=== PATIENT | male | born 1950 | race Caucasian/White ===

== ENCOUNTER → 2016-10-30 | Outpatient (CLI) | payer MEDICARE | END | disposition home or self-care (01) | LOC: PCVCCLINIC 11:40 | PROVIDERS: ATTEND Internal Medicine Cardiovascular Disease | DX: I10 Essential (primary) hypertension (principal); I71.2 Thoracic aortic aneurysm, without rupture; E78.00 Pure hypercholesterolemia, unspecified; I45.10 Unspecified right bundle-branch block; I07.1 Rheumatic tricuspid insufficiency; J44.9 Chronic obstructive pulmonary disease, unspecified; G47.33 Obstructive sleep apnea (adult) (pediatric); I87.2 Venous insufficiency (chronic) (peripheral); R07.89 Other chest pain | CPT/HCPCS: 80061; 93005; 93971; G0463 ==

== ENCOUNTER → 2017-04-17 | Outpatient (CLI) | payer MEDICARE ==
--- NOTE | 2017-04-20 18:27 | PCVCIMAG ---
APPROVED REPORT Study performed: 04/17/2017 09:31:35 EXAM: Comprehensive 2D, Doppler, and color-flow Echocardiogram Patient Location: Echo lab Status: routine BSA: 2.43 HR: 74 bpmBP: 120/76 mmHg Rhythm: RBBB Other Information Study Quality: Fair Indications COPD Hypertension/HDD Thoracic aorta aneurysm 2D Dimensions LVEF(%): 75.34 (>50%) IVSd: 10.00 (7-11mm)LVOT Diam: 25.09 (18-24mm) LVDd: 46.29 mm PWd: 9.73 (7-11mm) LVDs: 25.89 (25-40mm) Left Atrium: 33.54 (27-40mm) LV Single Plane 4CH: 60.43 % LV Single Plane 2CH: 66.78 %Gil's LVEF: 63.60 % Biplane EF: 64.3 % Volumes Left Atrial Volume (Systole) Single Plane 4CH: 49.24 mLSingle Plane 2CH: 51.67 mL Biplane LA Volume: 51.00 mLLA ESV Index: 21.00 mL/m2 Aortic Valve AoV Peak Marc.: 1.48 m/s AO Peak Gr.: 8.74 mmHgLVOT Max P.73 mmHg LVOT Max V: 1.09 m/s SULEMA Vmax: 3.64 cm2 Mitral Valve E/A Ratio: 0.9 MV Decel. Time: 167.60 ms MV E Max Marc.: 0.77 m/s MV A Marc.: 0.84 m/s IVRT: 89.97 ms TDI E/Lateral E': 9.63E/Medial E': 11.00 Medial E' Marc.: 0.07 m/s Lateral E' Marc.: 0.08 m/s Pulmonary Valve PV Peak Marc.: 1.00 m/sPV Peak Gr.: 4.03 mmHg Pulmonary Vein P Vein S: 0.71 m/sP Vein A: 0.35 m/s P Vein D: 0.47 m/sP Vein A Dur.: 90.0 msec P Vein S/D Ratio: 1.51 Tricuspid Valve TR Peak Marc.: 2.39 m/s TR Peak Gr.: 22.94 mmHg TV Vmax: 0.55 m/sPA Pressure: 30.00 mmHg Left Ventricle The left ventricle is normal size. There is normal LV segmental wall motion. There is normal left ventricular wall thickness. Left ventricular systolic function is normal. The left ventricular ejection fraction is within the normal range. LVEF is 60-65%. The left ventricular diastolic function is normal. Right Ventricle The right ventricle is normal size. The right ventricular systolic function is normal. Atria The left atrium size is normal. The right atrium size is normal. Aortic Valve The aortic valve is normal in structure. No aortic regurgitation is present. There is no aortic valvular stenosis. Mitral Valve The mitral valve is normal in structure. There is trivial mitral valve regurgitation noted. No evidence of mitral valve stenosis. Tricuspid Valve The tricuspid valve is normal in structure. Mild tricuspid regurgitation with a PA pressure of 30mmHg. Pulmonic Valve The pulmonary valve is normal in structure. There is no pulmonic valvular regurgitation. Great Vessels The aortic root is normal in size. The ascending aorta is not seen IVC is normal in size and collapses with >50% inspiration Pericardium There is no pericardial effusion. There is no pleural effusion. <Conclusion> There is normal left ventricular wall thickness. LVEF is 60-65%. The left ventricular diastolic function is normal. The right ventricle is normal size. The aortic valve is normal in structure. There is trivial mitral valve regurgitation noted. There is no pericardial effusion. Mild tricuspid regurgitation with a PA pressure of 30mmHg.
--- NOTE | 2017-04-20 18:27 | PCVCIMAG ---
APPROVED REPORT Exam: Nuclear Stress Test Indication: Chest Pain, RBBB, Ascending AA Patient Location: Out-Patient Stress Nurse: Brook Ralph RN, Jenna Ferro RN [place] Tech:Ronal Szymanski NMTCB Ht: 6 ft 2 in Wt: 260 lbs BSA: 2.43 m2 HR: 71 bpm BP: 125/80 mmHg BMI: 33.3 Rhythm: RBBB Medical History Medical History: Age, Hyperlipidemia, HTN, COPD, Smoker Medications: Benicar HCT, Atorvastatin, ASA Allergies: Nkda Pretest Chest Pain Characteristics: No chest pain Exercise History: Sedentary NM EXAM: Myocardial Perfusion REST/STRESS Imaging Protocol: Rest Tc-99m/Stress Tc-99m 1 day Resting Data Rest SPECT myocardial perfusion imaging was performed in supine position 45 minutes following the intravenous injection of 15.3 mCi of Tc-99m Sestamibi. Time of rest injection: 0945 Date: 04/17/2017 Pharmacologic Stress Pharmacologic stress test was performed by injecting Regadenoson 0.4 mg IV push followed by the intravenous injection of 42.6 mCi of Tc-99m Sestamibi. Time of stress injection: 1115 Date: 04/17/2017 The images were gated to evaluate regional wall motion and calculate left ventricular ejection fraction. Prone imaging was performed. Study Quality Study: Good Study Data Post stress, the left ventricular ejection was 73%.. SSS: 0 SRS: 0 SDS: 0 TID = 1.26. Perfusion Medium sized area of mild reversible ischemia involving the inferior/apical left ventricle consistent with a right coronary artery distribution. Mild post stress ventricular dilatation is present. This is a nonspecific findings sometimes seen with balanced ischemia. Please coorelate clinically. Wall Motion Normal left ventricular size and function with no regional wall motion abnormalities. Nuclear Conclusion Medium sized area of mild reversible ischemia involving the inferior/apical left ventricle consistent with a right coronary artery distribution. Mild post stress ventricular dilatation is present. This is a nonspecific findings sometimes seen with balanced ischemia. Please coorelate clinically. Post stress, the left ventricular ejection was 73%.. No prior study available for comparison. Interpreted by: Marito Riggs MD Electronically Approved: 04/17/2017 18:09:59 Stress Test Details Stress Test: Pharmacologic stress testing performed using 0.4 mg of regadenoson per 5 mL given IV over 10 seconds. HR Resting HR: 71 bpmMax Heart Rate (APMHR): 152 bpm Max HR Achieved: 96 bpmTarget HR (85% APMHR): 129 bpm % of APMHR: 63 Recovery HR: 83 bpm BP Resting BP: 125/80 mmHg Max BP: 120/63 mmHg ECG Resting ECG: Sinus Rhythm, RBBB Stress ECG: Sinus Rhythm, RBBB, Sinus Rhythm, NSSTT changes Maximum ST Deviation: 0.5 mm Arrhythmia: None Recovery ECG: Sinus Rhythm, RBBB Clinical Reason for Termination: Completed protocol Stress Symptoms: None Exercise duration: min 55 sec Exercise capacity: 1.0 METs Symptoms resolved during recovery. Stress ECG Conclusion ECG: Non-ischemic <Conclusion> ECG: Non-ischemic
== END | disposition home or self-care (01) ==
LOC: PCVCIMAG 15:34
PROVIDERS: ATTEND Internal Medicine Cardiovascular Disease
DX: I45.10 Unspecified right bundle-branch block (principal); I08.1 Rheumatic disorders of both mitral and tricuspid valves; K52.9 Noninfective gastroenteritis and colitis, unspecified; E78.5 Hyperlipidemia, unspecified; J44.9 Chronic obstructive pulmonary disease, unspecified; I10 Essential (primary) hypertension; I71.4 Abdominal aortic aneurysm, without rupture; E78.00 Pure hypercholesterolemia, unspecified; Z87.891 Personal history of nicotine dependence; Z79.899 Other long term (current) drug therapy
CPT/HCPCS: 78452; 80061; 93017; 93306; A9500

== ENCOUNTER → 2017-11-20 | Outpatient (CLI) | payer MEDICARE | END | disposition home or self-care (01) | LOC: PCVCCLINIC 11:00 | DX: I25.10 Atherosclerotic heart disease of native coronary artery without angina pectoris (principal); I10 Essential (primary) hypertension; I07.1 Rheumatic tricuspid insufficiency; I45.10 Unspecified right bundle-branch block; I71.2 Thoracic aortic aneurysm, without rupture; E78.00 Pure hypercholesterolemia, unspecified; F17.210 Nicotine dependence, cigarettes, uncomplicated; Z79.899 Other long term (current) drug therapy; Z79.82 Long term (current) use of aspirin | CPT/HCPCS: 80061; 93005; G0463 ==

== ENCOUNTER → 2018-06-19 | Outpatient (CLI) | payer MEDICARE ==
--- NOTE | 2018-06-19 13:25 | PCVCIMAG ---
EXAM: AORTOILIAC DUPLEX INDICATION: Peripheral arterial disease FINDINGS: AORTA: Suprarenal aorta measures maximum diameter of 3.3 cm. There is not a fusiform infrarenal aortic aneurysm. The infrarenal aorta measures maximum diameter of 2.5 cm. No aortic stenosis. RIGHT COMMON ILIAC ARTERY: Maximum diameter is 1.4 cm. No significant stenosis. RIGHT EXTERNAL ILIAC ARTERY: No significant stenosis. LEFT COMMON ILIAC ARTERY: Maximum diameter is 1.5 cm. No significant stenosis. LEFT EXTERNAL ILIAC ARTERY: No significant stenosis. IMPRESSION: 3.3 cm suprarenal abdominal aortic aneurysm. No evidence of infrarenal abdominal aortic aneurysm. LOC:[id number]
--- NOTE | 2018-06-19 15:12 | PCVCIMAG ---
APPROVED REPORT Study performed: 06/19/2018 10:33:55 Exam: Stress Echocardiogram Indication: CAD , Hypertension, Hyperlipidemia Patient Location: Echo lab Stress Nurse: Norah Vasquez RN Room #: 2 Status: routine Ht: 6 ft 2 in HR: 74 bpm BP: 130/88 mmHg Rhythm: RBBB Medical History Medical History: CAD non obstructive, HOCM, Hyperlipidemia,thoracic aneurysm Cardiac Risk Factors: HTN, Hyperlipidemia Previous Cardiac Procedures: PCI Pretest Chest Pain Characteristics: No chest pain Exercise History: Indeterminate Procedure The patient underwent an Exercise Stress Test using the Dennis Protocol. Blood pressure, heart rate, and EKG were monitored. An Echocardiogram was performed by operations technician in four stages in quad fashion. At peak stress, four selected images were obtained and placed side by side with resting images for comparison. Stress Test Details Stress Test: Exercise stress testing was performed using a Dennis protocol. HR Resting HR: 74 bpmMax Heart Rate (APMHR): 151 bpm Max HR Achieved: 137 bpmTarget HR (85% APMHR): 128 bpm % of APMHR: 90 Recovery HR: 91 bpm HR response to stress: Normal HR response to stress BP Resting BP: 130/88 mmHg Max BP: 180/82 mmHg Recovery BP: 158/84 mmHg ECG Resting ECG: RBBB Stress ECG: RBBB ST Change: Non-ischemic Arrhythmia: None Recovery ECG: Sinus Rhythm, RBBB Recovery ST Change: Non-ischemic Recovery Arrhythmia: None Clinical Reason for Termination: Maximal effort Stress Symptoms: none Exercise duration: 7 min 28 sec Highest Stage Achieved: Stage 3: 3.4 mph at 14% grade. Exercise capacity: 10.4 METs Overall Exercise Capacity for Age: Average Scale: Sedentary Angina Score: None No complications. Stress ECG Conclusion The patient exercised according to the DENNIS protocol for 7:28 mins; achieving a work level of 10.4 METS. The resting heart rate of 74 bpm akbar to a maximum heart rate of 137 bpm. This value represent 90% of the maximal, age-predicted heart rate. The resting blood pressure of 130/88 mmHg, akbar to a maximum blood pressure of 180/82 mmHg. The exercise test was stopped due to fatigue. Pre-Stress Echo The resting Echocardiogram showed normal left ventricular contractility with an estimated Ejection Fraction of about 55-60%. Normal wall motion in all segments on baseline images. Post-Stress Echo The stress Echocardiogram showed normal left ventricular contractility with an estimated Ejection Fraction of about 65-70%. Normal augmentation of wall motion in all segments on post stress images. Clinical No clinical or ECG evidence for ischemia. Conclusion Clinical Response: Non-ischemic Exercise Capacity: Average Stress ECG Response: Non-ischemic Stress Echo Images: Non-ischemic No clinical, EKG or echocardiographic evidence for ischemia. No echocardiographic evidence for exercise induced ischemia. Normal stress echocardiogram with maximal exercise stress. <Conclusion> No clinical, EKG or echocardiographic evidence for ischemia. No echocardiographic evidence for exercise induced ischemia. Normal stress echocardiogram with maximal exercise stress.
== END | disposition home or self-care (01) ==
LOC: PCVCIMAG 11:10
PROVIDERS: ATTEND Internal Medicine Cardiovascular Disease
DX: I25.10 Atherosclerotic heart disease of native coronary artery without angina pectoris (principal); I71.2 Thoracic aortic aneurysm, without rupture; I45.10 Unspecified right bundle-branch block; I10 Essential (primary) hypertension; I73.9 Peripheral vascular disease, unspecified
CPT/HCPCS: 93325; 93351; 93978

== ENCOUNTER → 2019-07-29 | Outpatient (CLI) | payer MEDICARE ==
--- NOTE | 2019-07-29 13:58 | PCVCIMAG ---
APPROVED REPORT Study performed: 07/29/2019 10:40:54 EXAM: Comprehensive 2D, Doppler, and color-flow Echocardiogram Patient Location: Echo lab Room #: 2Status: routine BSA: 2.48 HR: 74 bpm Rhythm: RBBB Other Information Study Quality: Fair Risk Factors: Cardiac Risk Factors: HTN, Hyperlipidemia Indications Abnormal ECG CAD Hypertension/HDD 2D Dimensions IVSd: 10.01 (7-11mm)LVOT Diam: 21.79 (18-24mm) LVDd: 45.65 mm PWd: 9.96 (7-11mm) LVDs: 24.66 (25-40mm) Left Atrium: 29.65 (27-40mm) LV Single Plane 4CH: 57.45 % LV Single Plane 2CH: 71.47 % Biplane EF: 64.3 % Volumes Left Atrial Volume (Systole) Single Plane 4CH: 46.44 mLSingle Plane 2CH: 46.57 mL Biplane LA Volume: 47.00 mLLA ESV Index: 19.00 mL/m2 Aortic Valve AoV Peak Marc.: 1.51 m/s AO Peak Gr.: 9.57 mmHgLVOT Max P.54 mmHg LVOT Max V: 1.17 m/s SULEMA Vmax: 2.88 cm2 Mitral Valve E/A Ratio: 0.7 MV Decel. Time: 246.80 ms MV E Max Marc.: 0.50 m/s MV A Marc.: 0.70 m/s IVRT: 87.66 ms TDI E/Lateral E': 6.25E/Medial E': 7.14 Medial E' Marc.: 0.07 m/s Lateral E' Marc.: 0.08 m/s Pulmonary Valve PV Peak Marc.: 1.02 m/sPV Peak Gr.: 4.13 mmHg Pulmonary Vein P Vein S: 0.59 m/sP Vein A: 0.36 m/s P Vein D: 0.35 m/sP Vein A Dur.: 120.0 msec P Vein S/D Ratio: 1.69 Tricuspid Valve TR Peak Marc.: 1.71 m/s TR Peak Gr.: 11.70 mmHg TV Vmax: 0.45 m/sPA Pressure: 19.00 mmHg Left Ventricle The left ventricle is normal size. There is normal LV segmental wall motion. There is normal left ventricular wall thickness. Left ventricular systolic function is normal. The left ventricular ejection fraction is within the normal range. LVEF is 60-65%. Grade I - abnormal relaxation pattern. Right Ventricle The right ventricle is normal size. The right ventricular systolic function is normal. Atria The left atrium size is normal. The right atrium size is normal. Aortic Valve Aortic valve is probably trileaflet. The Aortic valve is mildly sclerotic. No aortic regurgitation is present. There is no aortic valvular stenosis. Mitral Valve The mitral valve is normal in structure. There is no mitral valve regurgitation noted. No evidence of mitral valve stenosis. Tricuspid Valve The tricuspid valve is normal in structure. Trace tricuspid regurgitation. No pulmonary hypertension. Pulmonic Valve The pulmonary valve is normal in structure. There is no pulmonic valvular regurgitation. Great Vessels The aortic root is normal in size. Ascending aorta is not well visualized. Aortic arch is normal in caliber. IVC is normal in size and collapses >50% with inspiration. Pericardium There is no pericardial effusion. There is no pleural effusion. <Conclusion> The left ventricle is normal size. Left ventricular systolic function is normal. The left ventricular ejection fraction is within the normal range. LVEF is 60-65%. The right ventricle is normal size. The left atrium size is normal. Aortic valve is probably trileaflet. The Aortic valve is mildly sclerotic. There is no aortic valvular stenosis. There is no mitral valve regurgitation noted. Trace tricuspid regurgitation. No pulmonary hypertension. The aortic root is normal in size. There is no pericardial effusion.
== END | disposition home or self-care (01) ==
LOC: PCVCIMAG 10:40
PROVIDERS: ATTEND Internal Medicine Cardiovascular Disease
DX: I25.10 Atherosclerotic heart disease of native coronary artery without angina pectoris (principal); I10 Essential (primary) hypertension; E78.00 Pure hypercholesterolemia, unspecified; I71.2 Thoracic aortic aneurysm, without rupture; I45.10 Unspecified right bundle-branch block; I07.1 Rheumatic tricuspid insufficiency; I87.2 Venous insufficiency (chronic) (peripheral); J44.9 Chronic obstructive pulmonary disease, unspecified; I35.8 Other nonrheumatic aortic valve disorders; F17.200 Nicotine dependence, unspecified, uncomplicated
CPT/HCPCS: 36415; 80061; 93306

== ENCOUNTER → 2019-08-02 | Outpatient (CLI) | payer MEDICARE ==
[~2019-08-02] MED LIST: REGADENOSON 0.4 MG/5 ML DISP.SYRIN. IV ONE
--- NOTE | 2019-08-02 16:49 | PCVCIMAG ---
APPROVED REPORT Imaging Protocol: Rest Tc-99m/Stress Tc-99m 1 day Study performed: 08/02/2019 10:20:34 Indication: CAD Patient Location: Out-Patient Stress Nurse: Brook Ralph RN CT Tech:Faye AmayaRICARDO bradyMT Ht: 6 ft 2 in Wt: 273 lbs BSA: 2.48 m2 HR: 69 bpm BP: 137/84 mmHg BMI: 35.0 Rhythm: Sinus Rhythm, RBBB Medical History Medical History: Hyperlipidemia, HTN, CAD, Current Smoker Medications: Olmesartan-HCTZ, Statin, ASA Allergies: No known drug allergies Cardiac Risk Factors: Age Pretest Chest Pain Characteristics: No chest pain Exercise History: Sedentary Resting Data Rest SPECT myocardial perfusion imaging was performed in supine position 45 minutes following the intravenous injection of 9.4 mCi of Tc-99m Sestamibi. Time of rest injection: 1010 Date: 08/02/2019 Administration Route: IV Administration Site: Left Hand Pharmacologic Stress Pharmacologic stress test was performed by injecting Regadenoson 0.4 mg IV push over 10-15 seconds immediately followed by the intravenous injection of 33.6 mCi of Tc-99m Sestamibi. Time of stress injection: 1130 Date: 08/02/2019 Administration Route: IV Administration Site: Left Hand Gated Stress SPECT was performed 45 minutes after stress injection. The images were gated to evaluate regional wall motion and calculate left ventricular ejection fraction. Stress Test Details Stress Test: Pharmacologic stress testing performed using 0.4 mg of regadenoson per 5 mL given IV over 10 seconds. Reason for pharmacologic stress test: physical limitation, arthritis. HRMax Heart Rate (APMHR): 149 bpm Resting HR: 69 bpmTarget HR (85% APMHR): 126 bpm Max HR Achieved: 100 bpm % of APMHR: 67 Recovery HR: 80 bpm BP Resting BP: 137/84 mmHg Max BP: 135/67 mmHg Recovery BP: 132/77 mmHg ECG Resting ECG: Sinus Rhythm, RBBB Stress ECG: Sinus Tachycardia, RBBB Arrhythmia: None Recovery ECG: Sinus Rhythm, RBBB Clinical Reason for Termination: Completed protocol Stress Symptoms: Dyspnea Symptoms resolved with caffeine. Stress ECG Conclusion ECG: Non-ischemic Study Quality Study: Good Study Data Post stress, the left ventricular ejection was 64%.. SSS: 0 SRS: 6 SDS: 0 TID = 1.06. Perfusion No evidence of stress induced ischemia or prior myocardial infarction. Wall Motion Normal left ventricular size and function with no regional wall motion abnormalities. Nuclear Conclusion No evidence of stress induced ischemia or prior myocardial infarction. Normal left ventricular size and function with no regional wall motion abnormalities. Post stress, the left ventricular ejection was 64%. No change since prior study dated April 2017. Interpreted by: Marito Riggs MD Electronically Approved: 08/02/2019 14:14:35 <Conclusion> ECG: Non-ischemic
== END | disposition home or self-care (01) ==
LOC: PCVCIMAG 10:03
PROVIDERS: ATTEND Internal Medicine Cardiovascular Disease
DX: I25.10 Atherosclerotic heart disease of native coronary artery without angina pectoris (principal)
CPT/HCPCS: 78452; 93017; A9500; J2785